=== PATIENT | male | born 1990 | race Two or more races ===

== ENCOUNTER 2018-07-27 16:47 | Emergency (ER) | payer OTHER ==
[~2018-07-27] VITALS: Ht 170.2 cm; Wt 61.2 kg
[2018-07-27 18:15] VITALS: BP 117/63
== END 2018-07-27 19:36 | disposition home or self-care (01) ==
LOC: ER 16:47
DX: S02.81XA Fracture of other specified skull and facial bones, right side, initial encounter for closed fracture (principal); Z88.0 Allergy status to penicillin; Z88.8 Allergy status to other drugs, medicaments and biological substances; Y08.89XA Assault by other specified means, initial encounter; Y93.89 Activity, other specified; Y99.8 Other external cause status; Y92.89 Other specified places as the place of occurrence of the external cause
CPT/HCPCS: 70450; 70486